=== PATIENT | female | born 1995 | race Caucasian/White ===

== ENCOUNTER 2018-04-25 04:15 | Emergency (ER) | payer SELFPAY ==
[~2018-04-25] VITALS: Ht 167.6 cm; Wt 54.4 kg
--- NOTE | 2018-04-25 04:18 | NUR ---
PT BIB [facility] WITH A C/O ETOH AND A C/O OF SI. PT AMBULATED TO THE BATHROOM AND URINE SAMPLE WAS OBTAINED. PT WENT TO ER 7. PT DENIES SI WHEN ASKED. PT IS CRYING AND WANTS TO APPOLOGIZE TO HER FRIEND. WILL CONTINUE TO MONITOR THE PT.
--- NOTE | 2018-04-25 04:18 | NUR ---
PT DID NOT GIVE A URINE SAMPLE. PT THREW THE SAMPLE CUP AWAY. WILL TRY TO OBTAIN URINE AT A LATER TIME.
[2018-04-25 05:05] LABS: BASOPHILS % (AUTO) 0.3 % (0.0-2.0); EOSINOPHILS % (AUTO) 0.7 % (0.0-6.0); HEMATOCRIT 38 % (33-45); HEMOGLOBIN 13.4 g/dL (11.5-14.8); LYMPHOCYTES # (AUTO) 1.3 /CMM (0.8-4.8); LYMPHOCYTES % (AUTO) 19.6 % (20.0-44.0); MEAN CORPUSCULAR HGB CONC 35 g/dl (31.0-36.0); MEAN CORPUSCULAR VOLUME 94 fL (82-100); MONOCYTES # (AUTO) 0.3 /CMM (0.1-1.30); MONOCYTES % (AUTO) 4.9 % (2.0-12.0); NEUTROPHILS # (AUTO) 5.1 /CMM (1.8-8.9); NEUTROPHILS % (AUTO) 74.5 % (43.0-81.0); PLATELET COUNT (AUTO) 270 /CMM (150-450); RED BLOOD CELL COUNT(AUTO) 4.09 MIL/uL (4.0-5.2); WHITE BLOOD COUNT (AUTO) 6.9 K/uL (4.3-11.0)
--- NOTE | 2018-04-25 05:06 | NUR ---
PT REC'D WARM BLANKETS. PT APPEARS TO BE SLEEPING SOUNDLY WITH NO S/S OF DISTRESS.
[2018-04-25 05:15] LABS: CALCIUM, SERUM 8.9 mg/dL (8.5-10.1); CREATININE 0.7 mg/dL (0.6-1.3); POTASSIUM 3.6 mmol/L (3.5-5.1)
[2018-04-25 05:22] LABS: ALBUMIN 3.9 g/dL (3.4-5.0); BILIRUBIN,DIRECT 0.1 mg/dL (0.0-0.2); BILIRUBIN,TOTAL 0.3 mg/dL (0.2-1.0); TOTAL PROTEIN, SERUM 7.1 g/dL (6.4-8.2)
[2018-04-25 05:23] LABS: SALICYLATE 0.6 mg/dL (2.8-20.0)
--- NOTE | 2018-04-25 06:54 | NUR ---
[address] LCSW WAS AT THE BEDSIDE. PT IS NOT ABLE TO BE EVALUATED AT THIS TIME. PT IS SLEEPING SOUNDLY.
--- NOTE | 2018-04-25 07:30 | NUR ---
Patient resting well. Does not want to be awaken.
--- NOTE | 2018-04-25 07:36 | NUR ---
REPORT GIVEN TO DESMOND CURRY FOR MARY.
--- NOTE | 2018-04-25 08:13 | NUR ---
PAtient still not cooperable at this time. Still does not want to be bothered.
--- NOTE | 2018-04-25 09:49 | NUR ---
Patient awake, still not cooperative. Verbalizing wants to go home. But changed mind to stay and wait for MD rounds. No SI for now.
--- NOTE | 2018-04-25 12:03 | NUR ---
Patient discharged to home in stable condition. Written and verbal after care instructions given. Patient verbalizes understanding of instruction.
[2018-04-25 12:04] VITALS: BP 107/64
== END 2018-04-25 12:05 | disposition home or self-care (01) ==
LOC: ER 04:19 → EDBD 04:19 → ER 12:05
DX: R45.851 Suicidal ideations (principal); F10.129 Alcohol abuse with intoxication, unspecified; Y90.8 Blood alcohol level of 240 mg/100 ml or more
CPT/HCPCS: 36415; 80048-TC; 80076-TC; 85025-TC; G0480